=== PATIENT | female | born 1960 | race Caucasian/White ===

== ENCOUNTER 2019-07-17 12:21 | Emergency (ER) | payer OTHER, SELFPAY ==
[2019-07-17] VITALS (7 sets, daily range): BP systolic 107–124; BP diastolic 55–65; PULSE 54–66; RESP 15–27; TEMP 36.4; O2SAT 96–99; BMI 17.7
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
[2019-07-17] MEDS: morphine 4 mg/mL SDV 1 mL 2 MG IVP (13:05)
[2019-07-17] MEDS: acetaminophen 500 mg Tablet 1000 MG PO (13:05)
[2019-07-17 13:11] LABS: Basophils % 0.4 %; Eosinophils # 0.1 10^3/uL (0.0-0.8); Eosinophils % 0.7 %; Hematocrit 36.1 % (37.0-47.0); Hemoglobin 11.9 g/dL (11.5-15.3); Lymphocytes # 1.8 10^3/uL (0.8-4.8); Lymphocytes % 21.7 %; Mean Corpuscular Hemoglobin 33.1 pg (28.0-34.0); Mean Corpuscular Volume 100.3 fL (81-99); Mean Platelet Volume 9.6 fL (7.4-10.4); Monocytes # 0.5 10^3/uL (0.2-0.9); Monocytes % 5.8 %; Neutrophils # 5.7 10^3/uL (1.8-7.7); Neutrophils % 70.3 %; Nucleated Red Blood Cells % 0 %; Platelet Count 236 10^3/cmm (130-400); Red Cell Distribution Width 12.5 % (12.1-15.1); White Blood Count 8.1 10^3/uL (4.0-10.0)
[2019-07-17 13:20] LABS: Alanine Aminotransferase 12 U/L (0-33); Albumin Level 4.2 g/dL (3.5-5.2); Alkaline Phosphatase 49 IU/L (35-105); Anion Gap 11.5 (5-19); Aspartate Amino Transferase 27 U/L (0-32); Blood Urea Nitrogen 6 mg/dL (6-20); Calcium 9.5 mg/Dl (8.6-10.0); Carbon Dioxide 28 mmol/L (22-29); Chloride 103 mmol/L (98-107); Globulin 2.2 g/dL (1.3-4.6); Glomerular Filtration Rate 86.2 mL/min (90-130); Glucose 92 mg/dL (74-109); Potassium 3.5 mmol/L (3.5-5.1); Sodium 139 mmol/L (136-145); Total Bilirubin 0.3 mg/dL (0.15-1.2); Total Protein 6.4 g/dL (6.6-8.7)
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
[2019-07-17 15:39] LABS: Add Urine Microscopic? YES; Bilirubin Urine Neg (NEGATIVE); Blood Urine 2+ (Negative); Glucose Urine UA Norm (Normal); Ketones Urine Negative (Negative); Leukocyte Esterase Urine Negative (Negative); Nitrate Urine Negative (Negative); Protein Urine Neg (Negative); Urine Appearance Clear (CLEAR); Urine Color Yellow (Yellow); Urobilinogen Urine Norm (Negative)
[2019-07-17 15:41] LABS: Add Urine Culture? No; Bacteria Urine 1+; Mucus Urine TRACE; RBC Urine 0-4 /hpf (0-2); Squamous Epithelial Cell Urine 0-4 (0-5)
--- NOTE | 2019-07-17 15:59 | PC.NURSE ---
VS printed and placed in paper chart. Pt to CT via stretcher. Pt family updated on plan of care
--- NOTE | 2019-07-17 16:23 | PC.NURSE ---
Pt back to room from CT
--- NOTE | 2019-07-17 16:49 | PC.NURSE ---
PT at bedside to fit TLSO brace
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
== END 2019-07-17 17:35 | disposition home or self-care (01) ==
PROVIDERS: Emergency Provider Family Medicine; PCP Internal Medicine
DX: S32.010A Wedge compression fracture of first lumbar vertebra, initial encounter for closed fracture (principal); S12.390A Other displaced fracture of fourth cervical vertebra, initial encounter for closed fracture; V89.2XXA Person injured in unspecified motor-vehicle accident, traffic, initial encounter; F17.210 Nicotine dependence, cigarettes, uncomplicated
CPT/HCPCS: 36415; 72040; 72070; 72100; 72131; 80048; 80053; 81003; 85025; 96374; 99282; J2270; L0456